=== PATIENT | male | born 1990 | race Caucasian/White ===

== ENCOUNTER 2018-11-19 16:50 | Emergency (ER) | payer SELFPAY ==
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
[2018-11-19 18:13] LABS: HEMATOCRIT 48.3 % (42.0-52.0); HEMOGLOBIN 16.8 gm/dl (14.0-18.0); MEAN CELL VOLUME 97.4 fl (81-97); MEAN CORPUSCULAR HEMOGLOBIN 33.9 pg (27-33); MEAN CORPUSCULAR HGB CONC 34.8 g/dl (32-36); MEAN PLATELET VOLUME 9.2 fl (7.4-10.4); PLATELET COUNT 171 K/uL (130-400); RED BLOOD COUNT 4.96 M/uL (4.40-5.70); RED CELL DISTRIBUTION WIDTH 12.6 % (11.5-14.5); WHITE BLOOD COUNT W/O DIFF 18.7 K/uL (4.2-12.2)
[2018-11-19 18:19] LABS: PLATELET ESTIMATE NORMAL (NORMAL)
[2018-11-19 18:22] LABS: BLOOD UREA NITROGEN 7 mg/dL (6-20); CREATININE 0.8 mg/dL (0.7-1.2); EST GLOMERULAR FILTRATION RATE > 60 mL/min
[2018-11-19 18:23] LABS: TOTAL PROTEIN 7.3 g/dL (6.6-8.7)
[2018-11-19 18:25] LABS: GLUCOSE,RANDOM 102 mg/dL (74-109)
[2018-11-19 18:28] LABS: ALB/GLOB RATIO 1.5 (1.1-1.8); ALBUMIN 4.4 g/dL (4.0-5.0); ALKALINE PHOSPHATASE 75 U/L (55-149); ALT/SGPT 47 U/L (<41); AST/SGOT 43 U/L (10.0-50.0)
[2018-11-19 18:29] LABS: ALCOHOL 0.254 g/dL (0-0.010)
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
== END 2018-11-19 19:48 | disposition home or self-care (01) ==
LOC: ER 16:50
DX: S02.2XXA Fracture of nasal bones, initial encounter for closed fracture (principal); S00.83XA Contusion of other part of head, initial encounter; M54.2 Cervicalgia; F10.920 Alcohol use, unspecified with intoxication, uncomplicated; Y90.8 Blood alcohol level of 240 mg/100 ml or more; F17.210 Nicotine dependence, cigarettes, uncomplicated; Y04.0XXA Assault by unarmed brawl or fight, initial encounter; Y92.009 Unspecified place in unspecified non-institutional (private) residence as the place of occurrence of the external cause; S29.9XXA Unspecified injury of thorax, initial encounter; Y35.893A Legal intervention involving other specified means, suspect injured, initial encounter
CPT/HCPCS: 99284 ×2; 80053; 85027; 72125; 70450; 70486; G0480; 80320